=== PATIENT | female | born 1975 | race Asian ===

== ENCOUNTER 2019-03-24 18:20 | Inpatient (IN) | payer MEDICAID ==
[~2019-03-24] VITALS: Ht 167.6 cm; Wt 91.8 kg
[~2019-03-24 18:20] MED LIST: PHEN100C23
[2019-03-24] MEDS ORDERED: TOPI100T37 PO (18:29)
[2019-03-24] MEDS ORDERED: LAMO100 PO (18:29)
[2019-03-24] MEDS ORDERED: CARB200T6 PO (18:29)
[2019-03-24] MEDS ORDERED: SERT100T12 PO (18:29)
[2019-03-24] MEDS ORDERED: PRAZ2 PO (18:29)
[2019-03-24] MEDS ORDERED: ALBU8.5H8 IH (18:29)
[2019-03-24] MEDS ORDERED: QUET25TA PO (18:29)
[2019-03-24] MEDS ORDERED: HALOPERIDOL 5 MG TABLET PO PRN (18:45)
[2019-03-24 19:11] VITALS: BP 124/77
[2019-03-24] MEDS ORDERED: PNEUMOCOCCAL VACCINE POLYVALENT 0.5 ML VIAL [PPSV23] IM ONE (20:15)
[2019-03-24 20:58] VITALS: BP 124/74
[2019-03-24] MEDS: ZOLPIDEM TARTRATE 10 MG TABLET PO PRN (22:36)
[2019-03-25] MEDS: LORazepam 2 MG TABLET PO PRN (03:02)
[2019-03-25 03:20] VITALS: BP 124/79
[2019-03-25 08:12] LABS: BASOPHILS % (AUTO) 0.6 % (0.0-2.0); EOSINOPHILS % (AUTO) 5.7 % (1.0-6.0); HEMATOCRIT 41.3 % (36-46); HEMOGLOBIN 14.1 g/dL (12.0-16.0); LYMPHOCYTES # (AUTO) 2.1 K/uL (1.0-4.8); LYMPHOCYTES % (AUTO) 37.4 % (22.0-44.0); MEAN CORPUSCULAR HEMOGLOBIN 30.7 pg (26.0-34.0); MEAN CORPUSCULAR HGB CONC 34.1 G/dL (31.0-37.0); MEAN CORPUSCULAR VOLUME 90 fL (80-100); MONOCYTES # (AUTO) 0.3 K/uL (0.1-1.0); MONOCYTES % (AUTO) 5.5 % (2.0-9.0); NEUTROPHILS # (AUTO) 2.9 K/uL (1.8-7.7); NEUTROPHILS % (AUTO) 50.8 % (40.0-70.0); PLATELET COUNT (AUTO) 311 K/uL (150-450); RED CELL DISTRIBUTION WIDTH 14.5 % (11.5-14.5)
[2019-03-25 08:27] VITALS: BP 130/82
[2019-03-25 08:45] LABS: HEMOGLOBIN A1C 5.4 % (4.5-6.2)
[2019-03-25 09:13] LABS: ALANINE AMINOTRANSFERASE 12 U/L (12-78); ALBUMIN 4.4 g/dL (3.4-5.0); ALKALINE PHOSPHATASE 102 U/L (46-116); ANION GAP 13 mmol/L (8-16); ASPARTATE AMINOTRANSFERASE 10 U/L (15-37); BILIRUBIN,TOTAL 0.6 mg/dL (0.1-1.0); CALCIUM, TOTAL 9.7 mg/dL (8.8-10.5); CARBON DIOXIDE 23 mmol/L (22-29); CHLORIDE 106 mmol/L (98-107); CHOL/HDL RATIO 5.4 (3.9-5.7); CHOLESTEROL 193 mg/dL (131-200); CREATININE 0.71 mg/dL (0.60-1.30); FREE T4 (FREE THYROXINE) 0.85 ng/dL (0.76-1.46); GLOMERULAR FILTR. RATE CALC > 60 mL/min (>60); GLUCOSE,RANDOM 99 mg/dL (70-110); HCG,QUANTITATIVE 1 mIU/mL (0-6); HDL CHOLESTEROL 36 mg/dL (40-60); LDL CHOL (CALC.) 125 mg/dL (0-130); POTASSIUM 3.9 mmol/L (3.5-5.1); SODIUM SERUM 142 mmol/L (136-145); THYROID STIMULATING HORMONE 1.39 uIU/mL (0.36-3.74); TOTAL PROTEIN, SERUM 7.3 g/dL (6.4-8.2); TRIGLYCERIDES 162 mg/dL (15-150); UREA NITROGEN, BLOOD 9 mg/dL (7-18)
[2019-03-25] MEDS: TOPIRAMATE 100 MG TABLET PO SCH ×2 (10:45→17:02)
[2019-03-25] MEDS: CarBAMazepine 200 MG TABLET PO SCH ×2 (10:46→17:02)
[2019-03-25] MEDS: LamoTRIgine 100 MG TABLET PO SCH ×2 (10:46→17:02)
[2019-03-25] MEDS: SERTRALINE HCL 100 MG TABLET PO SCH (12:38)
[2019-03-25 16:29] VITALS: BP 120/87
[2019-03-25] MEDS ORDERED: CALCIUM OYSTER SHELL 250 MG-VIT D3 125 UNITS TABLET PO ONE (17:15)
[2019-03-25] MEDS ORDERED: BIOTIN 5 MG CAPSULE PO ONE (17:15)
[2019-03-25] MEDS ORDERED: MULTIVITAMINS, THERAPEUTIC TABLET PO ONE (17:15)
[2019-03-25] MEDS ORDERED: PHENYTOIN SODIUM 100 MG ER CAPSULE PO SCH (21:00)
[2019-03-25] MEDS: ZOLPIDEM TARTRATE 10 MG TABLET PO PRN (21:02)
[2019-03-25] MEDS: MAGNESIUM HYDROXIDE SUSPENSION 30 ML UDCUP PO PRN (21:02)
[2019-03-25] MEDS: QUEtiapine FUMARATE 25 MG TABLET PO SCH (21:02)
[2019-03-25] MEDS: PRAZOSIN HCL 2 MG CAPSULE PO SCH (21:40)
[2019-03-25] MEDS: SUMAtriptan SUCCINATE 100 MG TABLET PO PRN (21:40)
[2019-03-26 06:53] VITALS: BP 119/72
[2019-03-26] MEDS: TOPIRAMATE 100 MG TABLET PO SCH ×2 (08:23→17:12)
[2019-03-26] MEDS: SERTRALINE HCL 100 MG TABLET PO SCH (08:23)
[2019-03-26] MEDS: LamoTRIgine 100 MG TABLET PO SCH ×2 (08:24→17:12)
[2019-03-26] MEDS: CarBAMazepine 200 MG TABLET PO SCH ×2 (08:27→17:12)
[2019-03-26 08:32] VITALS: BP 122/61
[2019-03-26] MEDS: MAGNESIUM HYDROXIDE SUSPENSION 30 ML UDCUP PO PRN (12:31)
[2019-03-26] MEDS: SUMAtriptan SUCCINATE 100 MG TABLET PO PRN (12:35)
[2019-03-26 16:11] VITALS: BP 115/82
[2019-03-26] MEDS: LORazepam 2 MG TABLET PO PRN (18:50)
[2019-03-26] MEDS ORDERED: *PATIENT'S OWN MED [ENTER DRUG, DOSE, FREQUENCY IN COMMENTS] CLINICAL ONE ×3 (19:15)
[2019-03-26] MEDS: QUEtiapine FUMARATE 25 MG TABLET PO SCH (20:10)
[2019-03-26] MEDS: PRAZOSIN HCL 2 MG CAPSULE PO SCH (20:10)
[2019-03-26] MEDS: MULTIVITAMIN PO SCH (21:33)
[2019-03-26] MEDS: BIOTIN PO SCH (21:33)
[2019-03-26] MEDS: CALCIUM PO SCH (21:34)
[2019-03-26] MEDS: CHOLECALCIFEROL PO SCH (21:34)
[2019-03-27 06:36] VITALS: BP 129/75
[2019-03-27 08:08] VITALS: BP 122/75
[2019-03-27] MEDS: SERTRALINE HCL 100 MG TABLET PO SCH (08:22)
[2019-03-27] MEDS: CarBAMazepine 200 MG TABLET PO SCH (08:22)
[2019-03-27] MEDS: LamoTRIgine 100 MG TABLET PO SCH (08:23)
[2019-03-27] MEDS: TOPIRAMATE 100 MG TABLET PO SCH (08:23)
[2019-03-27] MEDS: MULTIVITAMIN PO SCH (08:25)
[2019-03-27] MEDS: CHOLECALCIFEROL PO SCH (08:26)
[2019-03-27] MEDS: BIOTIN PO SCH (08:26)
[2019-03-27] MEDS: CALCIUM PO SCH (08:26)
[2019-03-27] MEDS ORDERED: IBUPROFEN 600 MG TABLET PO PRN (08:45)
[2019-03-27] MEDS ORDERED: ACETAMINOPHEN 325 MG TABLET PO PRN (08:45)
== END 2019-03-27 13:30 | disposition home or self-care (01) | DRG 753 ==
LOC: B3A 18:45
PROVIDERS: ADMIT Psychiatry & Neurology Psychiatry; ATTEND Psychiatry & Neurology Psychiatry
PROC: 3E0234Z Introduction of Serum, Toxoid and Vaccine into Muscle, Percutaneous Approach (ICD-10-PCS; principal; 2019-03-24)
DX: F31.9 Bipolar disorder, unspecified (principal); G40.909 Epilepsy, unspecified, not intractable, without status epilepticus; R45.851 Suicidal ideations; J45.909 Unspecified asthma, uncomplicated; Z59.0 Homelessness; Z98.84 Bariatric surgery status; Z23 Encounter for immunization; Z88.5 Allergy status to narcotic agent
CPT/HCPCS: 83036; 84439; 84443; 90732